=== PATIENT | female | born 1995 | race Caucasian/White ===

== ENCOUNTER 2016-07-13 13:31 | Emergency (ER) | payer OTHER ==
[~2016-07-13 13:31] MED LIST: MOTRIN600 M1 PO; NO MEDICATIONS; ONDANSETRON HCL4 MG PO; ZOFRAN ODT4 MG PO; ZOFRAN ODT4 MG/UDTAB PO
[2016-07-13 13:40] LABS: URINE SOURCE CLEAN CATCH
[2016-07-13 13:44] LABS: URINE BILIRUBIN NEG (NEG); URINE BLOOD TRACE-INTACT (NEG); URINE GLUCOSE NEG (NORM); URINE KETONE NEG (NEG); URINE LEUKOCYTE ESTERASE NEG (NEG); URINE NITRATE POS (NEG); URINE PH 6.5 (5-8); URINE PROTEIN NEG (NEG); URINE UROBILINOGEN 0.2 MG/DL (NORM)
[2016-07-13 13:50] LABS: MICRO INDICATED? YES; URINE APPEARANCE SL HAZY; URINE COLOR YELLOW
[2016-07-13 13:58] LABS: CULTURE INDICATED? YES; URINE BACTERIA 4+ (NEG); URINE RBC 0-2 /[HPF] (0-2); URINE SQUAMOUS EPITHELIAL CELL MANY /[HPF]; URINE WBC 0-2 /[HPF] (0-5)
== END 2016-07-13 14:16 | disposition home or self-care (01) ==
LOC: SED 13:31
PROVIDERS: Emergency Medicine
DX: N30.00 Acute cystitis without hematuria (principal); K59.00 Constipation, unspecified; F17.200 Nicotine dependence, unspecified, uncomplicated
CPT/HCPCS: 81003; 84703; 87086; 87088; 87186; 99284